=== PATIENT | female | born 1970 | race Two or more races ===

== ENCOUNTER 2017-03-27 23:57 | Emergency (ER) | payer MEDICAID ==
[~2017-03-27] VITALS: Ht 170.2 cm; Wt 75.7 kg
[2017-03-28] MEDS ORDERED: methylPREDNISolone SOD SUCC 125 MG/2 ML VL IV ONE (00:15)
[2017-03-28] MEDS ORDERED: diphenhdrAMINE HCL 50 MG/1 ML VL IV ONE (00:15)
[2017-03-28 01:21] VITALS: BP 140/98
== END 2017-03-28 01:25 | disposition home or self-care (01) ==
LOC: ER 23:58
DX: T78.40XA Allergy, unspecified, initial encounter (principal); Z91.011 Allergy to milk products
CPT/HCPCS: 96374; 96375; 99284; J1200; J2930